=== PATIENT | male | born 1960 | race Caucasian/White ===

== ENCOUNTER → 2016-09-21 | Outpatient (CLI) | payer MEDICARE, MEDICAID | END | disposition home or self-care (01) | LOC: PTH.S 09-17 12:15 → RAD.S 09-17 13:00 → PTH.S 09-20 12:45 → RAD.S 09:34 | DX: C63.0 Malignant neoplasm of epididymis (principal); R91.8 Other nonspecific abnormal finding of lung field ==

== ENCOUNTER → 2016-12-27 | Outpatient (CLI) | payer MEDICARE, MEDICAID | END | disposition home or self-care (01) | LOC: PTH.S 12-14 09:00 → RAD.S 12:16 | DX: C63.0 Malignant neoplasm of epididymis (principal); R91.8 Other nonspecific abnormal finding of lung field ==